=== PATIENT | female | born 2000 | race Caucasian/White ===

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

== ENCOUNTER 2022-10-26 22:43 | Emergency (ER) | payer OTHER, SELFPAY ==
--- NOTE | ~2022-10-26 | CT_ITS ---
CT Facial Bones Clinical Indication: Trauma Technique: Contiguous axial scans were obtained through the facial bones followed by coronal and sagi ttal reconstructions. Dose reduction technique was used on this scan by utilizing automated exposure control and iterative reconstruction technique. The dose-length product (DLP) was 349.40 mGy-cm. Findings: No fractures are identified. There is mild mucosal thickening involving the right maxillary sinus, bilateral ethmoid air cells, and bilateral frontal sinuses. The remaining visualized paranasa l sinuses are clear. Intraorbital soft tissues appear normal. Impression: No fracture identified. Sinus disease, as above. Reviewed, dictated and finalized at location M. ENRICHMENT ASSISTANT Impression: No fracture identified. Sinus disease, as above.
[2022-10-26 22:46] VITALS: BP 135/86; PULSE 92; RESP 17; TEMP 36.5; O2SAT 100
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
[2022-10-27] MEDS: IBUPROFEN 600 MG TABLET PO (01:01)
== END 2022-10-27 01:57 | disposition home or self-care (01) ==
PROVIDERS: Emergency Provider Physician Assistant; PCP Pediatrics
DX: S09.90XA Unspecified injury of head, initial encounter (principal); W51.XXXA Accidental striking against or bumped into by another person, initial encounter
CPT/HCPCS: 70486; 99284; A9270

== ENCOUNTER 2023-07-31 14:54 | Emergency (ER) | payer OTHER, SELFPAY ==
[2023-07-31 15:04] VITALS: BP 113/56; PULSE 81; RESP 16; TEMP 36.8; O2SAT 100
--- NOTE | 2023-07-31 15:16 | ED.URI ---
HPI - URI/Sore Throat General Chief Complaint: Upper Respiratory Infection Stated Complaint: headache,left eye bothersome lump under chin Time Seen by Provider: 07/31/23 15:16 Source: patient Mode of arrival: ambulatory Limitations: no limitations History of Present Illness HPI Narrative: 22 yo F presents with c/o intermittent headache for 2 days. Took excedrin. Woke up this AM and headache was gone. Now has pain to L eye when looking into peripheral vision. no pain to eyes at rest. Also states was feeling around on face today and felt nonpainful bump under chin. All systems reviewed and negative except as noted above. Related Data Home Medications Medication Instructions Recorded Confirmed drospirenone 3 mg-ethinyl 1 tablet PO DAILY 08/25/20 12/23/21 estradiol 0.03 mg tablet (Shruthi (28)) Allergies Allergy/AdvReac Type Severity Reaction Status Date / Time No Known Allergies Allergy Verified 07/31/23 15:02 Review of Systems Review of Systems: CONSTITUTIONAL: Denies fever, chills, or sweats. EYES: Denies visual changes, redness, or discharge. Reports L eye strain ENT: Denies rhinorrhea, congestion, sore throat, or otalgia. CARDIOVASCULAR: Denies chest pain, palpitations, or edema. RESPIRATORY: Denies cough or dyspnea. GASTROINTESTINAL: Denies abdominal pain, nausea, vomiting, or diarrhea. GENITOURINARY: Denies dysuria or hematuria. SKIN: Denies rash or itching. reports bump under chin MUSCULOSKELETAL: Denies back pain, joint pain, or myalgia. NEUROLOGIC: Denies headache, numbness, or weakness. PSYCHIATRIC: Denies anxiety or depression. All other systems reviewed are negative, except as documented in HPI. PMFSH Social History Social History Gender identity (if verbalized by the patient): Female Comments At time of signature, agree with nursing past medical, surgical, social and family history. There is no relevant family history pertinent to the presenting complaint. Exam Narrative: GENERAL: This is a well-nourished, well-developed patient, in no apparent distress. HEAD: normocephalic, atraumatic. EYES: PERRL. Sclera clear/white. Vision is grossly intact. extraoccular motions intact. no drainage. EARS: External ears normal NOSE: External nose normal NECK: Neck supple, non-tender without lymphadenopathy, masses or thyromegaly. CARDIOVASCULAR: Regular rate and rhythm without murmurs, gallops, or rubs. RESPIRATORY: Clear to auscultation. Breath sounds equal bilaterally. No wheezes, rales, or rhonchi. SKIN: warm, Dry, intact with no suspicious lesions or rash, good texture and turgor. 2cm diameter firm, nontender nodule. possible enlarged lymph node. NEURO: awake, alert, and oriented to person, place and time. There were no obvious focal neurologic abnormalities. EXTREMITIES: No joint tenderness, effusion, or edema noted. Course Course Level of Care: Express Care Visit Vital Signs Vital signs: Vital Signs Temperature 36.8 C 07/31/23 15:04 Pulse Rate 81 07/31/23 15:04 Respiratory Rate 16 07/31/23 15:04 Blood Pressure 113/56 L 07/31/23 15:04 Pulse Oximetry 100 07/31/23 15:04 Oxygen Delivery Room Air 07/31/23 15:04 Temperature 36.8 C 07/31/23 15:04 Pulse Rate 81 07/31/23 15:04 Respiratory Rate 16 07/31/23 15:04 Blood Pressure 113/56 L 07/31/23 15:04 Pulse Oximetry 100 07/31/23 15:04 Oxygen Delivery Room Air 07/31/23 15:04 Reviewed MDM - URI/Sore Throat MDM Narrative Medical decision making narrative: eye exam normal. recommend eye rest. see account review specialist if not improvign. recommend follow up with PCP to further evaluate nodule/lymph node under pt's chin. pt agrees with plan of care. Patient is aware of diagnosis, understands and agrees to treatment plan. Anticipatory guidance given. Patient agrees to follow-up as directed and is aware of reasons to seek care at the [facility]
== END 2023-07-31 15:35 | disposition home or self-care (01) ==
PROVIDERS: Emergency Provider Nurse Practitioner Family; PCP Pediatrics
DX: S05.8X2A Other injuries of left eye and orbit, initial encounter (principal); X58.XXXA Exposure to other specified factors, initial encounter; R59.9 Enlarged lymph nodes, unspecified
CPT/HCPCS: 99212; G0463

== ENCOUNTER 2024-07-15 15:33 | Emergency (ER) | payer OTHER, SELFPAY ==
--- NOTE | ~2024-07-15 | US_ITS ---
EXAMINATION: US pelvic complete DATE: 07/15/2024 16:49 INDICATION: left adnexal pain TECHNIQUE: Multiple transabdominal and endovaginal sonographic images of the pelvis were obtained. COMPARISON: None. FINDINGS: Uterus: 7.3 x 5.8 x 4.7 cm. Endometrial complex measures 3.2 mm. Right Ovary: 3.2 x 2.8 x 3.5 cm. Vascular flow is present. No adnexal mass. Left Ovary: 3.0 x 2.5 x 1.8 cm. Vascular flow is present. No adnexal mass. There is no free fluid in the pelvis. IMPRESSION: Normal pelvic sonogram findings. Reviewed, dictated and finalized at location K. USER INTERFACE DEVELOPER
--- NOTE | ~2024-07-15 | CT_ITS ---
EXAMINATION: CT abdomen pelvis w con DATE: 07/15/2024 18:02 INDICATION: LLQ pain with syncope TECHNIQUE: Computed tomography (CT) of the abdomen and pelvis was performed with 100 mL Omnipaque-350 intravenous contrast. Automated exposure control and iterative reconstruction technique were employe d. The dose-length product was 208.34 mGy-cm. COMPARISON: 05/08/2021; ultrasound pelvis 07/15/2024. FINDINGS: Lower thorax: Unremarkable Liver: Normal. Biliary/Gallbladder: Gallbladder is normal. No bile duct dilation. Pancreas: No mass or duct dilation. Spleen: Normal. Adrenals:No mass. Kidneys: No suspicious mass, obstructing stone, or hydronephrosis. Stable right midpole renal cysts. GI tract: No small or large bowel dilation. Normal appendix. Mesentery/Peritoneum: No ascites, mass, or free air. Retroperitoneum: No mass. Pelvis: Pelvic organs are within normal limits. Soft Tissues: Soft tissues and body wall unremarkable. Bones: No acute osseous finding. IMPRESSION: No acute abdominopelvic process detected. Reviewed, dictated and finalized at location K. NG TUMBLER OPERATOR
[2024-07-15 15:33] VITALS: RESP 16; O2SAT 100
[2024-07-15 15:37] VITALS: BP 80/29; PULSE 89
[2024-07-15 15:41] VITALS: BP 89/50
[2024-07-15 15:50] VITALS: BP 88/48
[2024-07-15 16:00] LABS: Basophils Percent Auto 0.3 % (0.2-1.2); Eosinophils Absolute Auto 0.1 K/mm3 (0-0.3); Eosinophils Percent Auto 0.7 % (0-4.4); Hematocrit 37.6 % (37.0-47.0); Hemoglobin 12.8 g/dL (12.0-15.0); Immature Granulocyte Absolute 0.03 K/mm3 (0.00-0.031); Immature Granulocyte Percent A 0.3 % (0-0.5); Lymphocytes Absolute Auto 3.48 K/mm3 (0.9-3.2); Lymphocytes Percent Auto 37.9 % (18.3-44.2); Mean Corpuscular Hemoglobin 29.5 pg (26-34); Mean Corpuscular Volume 86.6 fl (80-100); Monocytes Absolute Auto 0.9 K/mm3 (0.1-0.6); Monocytes Percent Auto 9.5 % (2.6-8.5); Neutrophils Absolute Auto 4.7 K/mm3 (1.3-6.7); Neutrophils Percent Auto 51.3 % (45.5-73.1); Platelet Count Result 280 k/mm3 (150-375); Red Blood Count 4.34 M/mm3 (4.2-5.4); Red Cell Distribution Width 12.3 % (11.5-14.5); White Blood Count 9.2 K/mm3 (4.5-10.0)
[2024-07-15 16:10] LABS: Alanine Aminotransferase 14 U/L (6-35); Albumin Level 4.5 g/dL (3.5-5.1); Alkaline Phosphatase 58 U/L (38-126); Anion Gap 9 mmol/L (4-12); Aspartate Amino Transferase 26 U/L (14-36); Bilirubin,Total 0.8 mg/dL (0.2-1.3); Blood Urea Nitrogen 14 mg/dL (7-17); Calcium 9.3 mg/dL (8.4-10.2); Carbon Dioxide 26 mmol/L (22-30); Chloride 104 mmol/L (98-107); Estimated CRCL calculation 84 ml/min; Estimated Glomerular Filt Rate > 60; Glucose 119 mg/dL (65-110); Lipase 73 U/L (23-300); Potassium 4.4 mmol/L (3.4-5.0); Sodium 139 mmol/L (137-145)
[2024-07-15] MEDS: fentaNYL CITRATE INJ (*CRX) 100 MCG/2 ML VIAL 25 MCG IV PUSH (16:20)
[2024-07-15] MEDS: SODIUM CHLORIDE 0.9% IV 1,000 ML 999 ML (16:33)
[2024-07-15 16:43] LABS: SPREG INTERNAL CONTROL Positive; Serum Qual hCG Negative
[2024-07-15 17:41] VITALS: BP 105/64; PULSE 73; RESP 18; O2SAT 100
--- NOTE | 2024-07-15 17:46 | ED.ABDPAIN ---
HPI - Abdominal Pain General Chief Complaint: Abdominal Pain Stated Complaint: abd pain Time Seen by Provider: 07/15/24 16:03 History of Present Illness HPI narrative: patient is a 23-year-old female who presents ER with left lower quadrant abdominal pain. Sudden onset. Associated with lightheadedness and near-syncope. She is currently on her menstrual cycle. She is not on control. She is not sexually active and does not feel she would be . No fevers or chills or sweats. Has history of ovarian cysts in the past. Related Data Home Medications Medication Instructions Recorded Confirmed drospirenone 3 mg-ethinyl 1 tablet PO DAILY 08/25/20 12/23/21 estradiol 0.03 mg tablet (Shruthi (28)) Allergies Allergy/AdvReac Type Severity Reaction Status Date / Time No Known Allergies Allergy Verified 07/31/23 15:02 Review of Systems Review of Systems: All systems reviewed & are unremarkable except as noted in HPI and below Constitutional: Constitutional: Reports no additional constitutional complaints Cardiovascular: Cardiovascular: Reports no additional cardiovascular complaints Respiratory: Respiratory: Reports no additional respiratory complaints Gastrointestinal: Gastrointestinal: Reports abdominal pain, Denies diarrhea, Denies nausea and Denies vomiting Genitourinary: Genitourinary: Denies abnormal vaginal bleeding, Reports pelvic pain, Denies flank pain, Denies urinary incontinence and Denies vaginal discharge PMFSH Past Medical History Medical History (Updated 07/15/24 @ 18:46 by Jack Lawson MD) Ovarian cyst Surgical History Surgical History (Updated 07/15/24 @ 18:42 by Jack Lawson MD) No pertinent past surgical history Social History Social History Gender identity (if verbalized by the patient): Female Exam Narrative: GENERAL: pale/ill-appearing, well-nourished, and in no acute distress. HEAD: Normocephalic, atraumatic. EYES: PERRL and EOMI. ENT: Mucous membranes moist. CHEST: Clear to auscultation. No respiratory distress. HEART: Regular rate and rhythm. Normal peripheral pulses. ABDOMEN: Soft, tender palpation left lower quadrant near adnexal region, nondistended. EXTREMITIES: Normal range of motion. No edema. SKIN: cool, dry, no rash. NEURO: Alert and oriented x3. PSYCH: Normal mood and affect. Course Course Emergency Course: blood pressure in color improving after IV fluids and pain medication. Labs unremarkable. Ultrasound without ruptured cyst. Normal CT scan of the abdomen. Appropriate for discharge home. Likely had vasovagal near-syncope from the pain. May have had ruptured cyst though none was seen Vital Signs Vital signs: Vital Signs Respiratory Rate 16 07/15/24 15:33 Pulse Oximetry 100 07/15/24 15:33 Pulse Rate 73 07/15/24 17:41 Respiratory Rate 18 07/15/24 17:41 Blood Pressure 105/64 07/15/24 17:41 Pulse Oximetry 100 07/15/24 17:41 MDM - Abdominal Pain Lab Data 07/15/24 15:55 07/15/24 15:55 Labs: Lab Results 07/15/24 07/15/24 Range/Units 15:55 17:38 WBC 9.2 (4.5-10.0) K/mm3 RBC 4.34 (4.2-5.4) M/mm3 Hgb 12.8 (12.0-15.0) g/dL Hct 37.6 (37.0-47.0) % MCV 86.6 (80-100) fl MCH 29.5 (26-34) pg MCHC 34.0 (32-36) g/dl RDW 12.3 (11.5-14.5) % Plt Count 280 (150-375) k/mm3 MPV 9.0 (7.4-10.4) fl Immature Gran % (Auto) 0.3 (0-0.5) % Neut % (Auto) 51.3 (45.5-73.1) % Lymph % (Auto) 37.9 (18.3-44.2) % [place] % (Auto) 9.5 H (2.6-8.5) % Eos % (Auto) 0.7 (0-4.4) % Baso % (Auto) 0.3 (0.2-1.2) % Lymph # (Auto) 3.48 H (0.9-3.2) K/mm3 [place] # (Auto) 0.9 H (0.1-0.6) K/mm3 Eos # (Auto) 0.1 (0-0.3) K/mm3 Baso # (Auto) 0.0 (0.0-0.1) K/mm3 Abs Immat Gran (auto) 0.03 (0.00-0.031) K/mm3 Absolute Neuts (auto) 4.7 (1.3-6.7) K/mm3 Absolute Nucleated RBC 0.000 (0.0-0.012) K/mm3 Nucleated RBC % 0.0 (0.0-0.2) % Sodium 139 (137-145) mmol/L Potassium 4.4 (3.4-5.0) mmol/L Chloride 104 (98-107) mmol/L Carbon Dioxide 26 (22-30) mmol/L Anion Gap 9 (4-12) mmol/L BUN 14 (7-17) mg/dL Creatinine 0.80 (0.7-1.0) mg/dL Estim Creat Clear Calc 84 ml/min Estimated GFR > 60 (59 - ) Glucose 119 H (65-110) mg/dL Calcium 9.3 (8.4-10.2) mg/dL Total Bilirubin 0.8 (0.2-1.3) mg/dL AST 26 (14-36) U/L ALT 14 (6-35) U/L Alkaline Phosphatase 58 (38-126) U/L Total Protein 7.0 (6.3-8.2) g/dL Albumin 4.5 (3.5-5.1) g/dL Lipase 73 (23-300) U/L Serum HCG, Qual Negative Urine Color Yellow (Yellow) Urine Appearance Clear (Clear) Urine pH 6.0 (5.0-9.0) Ur Specific [place] 1.025 (1.001-1.035) Urine Protein 1+ H (Negative) mg/dL Urine Glucose (UA) Negative (Negative) mg/dL Urine Ketones 2+ H (Negative) mg/dL Ur Blood (Man) Negative (Negative) Urine Nitrate Negative (Negative) Urine Bilirubin Negative (Negative) Urine Urobilinogen 1.0 (<2.0) mg/dL Add Ur Microanalysis Reviewed Leukocyte Esterase Rfl Negative (Negative) MEERA/UL Urine RBC 0-2 (0-2) /hpf Urine WBC 0-5 (0-3) /hpf Ur Squamous Epith Cells Occasional (Few) /hpf Urine Bacteria None seen /hpf Urine Casts 6-10 Imaging Data Radiologist's impression: ITS Impressions Pelvis Ultrasound 07/15/24 16:59 IMPRESSION: Normal pelvic sonogram findings. Abdomen/Pelvis CT 07/15/24 18:34 IMPRESSION: No acute abdominopelvic process detected. Discharge Plan Discharge Clinical Impression: Near syncope, Pelvic pain Patient Disposition: Home, Self-Care Condition: Stable Instructions: Abdominal Pain (ED) Additional Instructions: Return to the emergency department if you develop severe abdominal pain, severe nausea and vomiting to the point where you are unable to keep down fluids, if you develop chest pain or difficulty breathing, blood in your stool, dizziness or fainting, or if you develop any other new or concerning symptoms as these could be signs of more serious medical illness. Try to stay well hydrated. Prescriptions: No Action drospirenone-ethinyl estradiol [Shruthi (28)] 3-0.03 mg tablet 1 tablet PO DAILY Follow-up/Referrals: Yasmany Wu MD [Primary Care Provider] -
[2024-07-15 17:56] LABS: Add Urine Microscopic? YES; Appearance Urine Clear (Clear); Bacteria Urine None Seen /hpf; Bilirubin Urine Negative (Negative); Blood Urine Negative (Negative); Color Urine Yellow (Yellow); Glucose Urine UA Negative (Negative); Ketones Urine 2+ mg/dL (Negative); Leukocyte Esterase Ur Negative LEU/UL (Negative); Need Manual Microscopic Reviewed; Nitrate Urine Negative (Negative); Protein Urine 1+ mg/dL (Negative); RBC Urine 0-2 /hpf (0-2); Specific Grav Ur 1.025 (1.001-1.035); Squamous Epithelial Cell Urine Occasional /hpf (Few); WBC Urine 0-5 /hpf (0-3)
== END 2024-07-15 19:03 | disposition home or self-care (01) ==
PROVIDERS: Emergency Provider Emergency Medicine; PCP Pediatrics
DX: R55 Syncope and collapse (principal); R10.2 Pelvic and perineal pain
CPT/HCPCS: 36415; 74177; 76856; 80053; 81001; 83690; 84703; 85025; 96361; 96374; 99284; J3010; J7030; Q9967